=== PATIENT | female | born 1955 | race Two or more races ===

== ENCOUNTER 2017-09-25 22:57 | Emergency (ER) | payer SELFPAY ==
--- NOTE | 2017-09-25 23:48 | ED ---
Throat Pain/Nasal Congestion - HPI Summary HPI Summary: Patient from [place] 3 days ago complains of sub fever, chills, ALLEN, sore throat, body aches, dry cough x 2 days, with nausea today. Denies ear pain, neck pain, CP, SOB, V/D, abdominal pain, change in urine or BM. Medical history is HTN, palpitations. Took Tylenol prior to arrival. 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 Onset/Duration: Gradual Onset Severity: Mild Associated Signs And Symptoms: Positive: Negative Cough: Nonproductive - Epiglottits Risk Factors Epiglottis Risk Factors: Negative - Allergies/Home Medications Allergies/Adverse Reactions: Allergies Allergy/AdvReac Type Severity Reaction Status Date / Time diclofenac [From Voltaren] Allergy Hives Verified 09/25/17 23:12 PMH/Surg Hx/FS Hx/Imm Hx Endocrine/Hematology History: Denies: Hx Anticoagulant Therapy Cardiovascular History: Denies: Hx Cardiac Arrest History: Denies: Hx Dialysis Neurological History: Denies: Hx CVA Infectious Disease History: No Infectious Disease History: Reports: Traveled Outside the [place] in Last 30 Days - Social History Alcohol Use: None Hx Substance Use: No Hx Tobacco Use: No Review of Systems Positive: Fever, Chills Eyes: Negative Positive: Sore Throat Cardiovascular: Negative Positive: Cough Positive: Nausea Genitourinary: Negative Positive: Myalgia Skin: Negative Positive: Headache Psychological: Normal All Other Systems Reviewed And Are Negative: Yes Physical Exam Triage Information Reviewed: Yes Vital Signs On Initial Exam: Initial Vitals Temp Pulse Resp BP Pulse Ox 97.8 F 76 16 116/60 98 09/25/17 23:09 09/25/17 23:09 09/25/17 23:09 09/25/17 23:09 09/25/17 23:09 Vital Signs Reviewed: Yes Appearance: Positive: Well-Appearing Skin: Positive: Warm Head/Face: Positive: Normal Head/Face Inspection Eyes: Positive: Normal ENT: Positive: Pharyngeal erythema, TMs normal, Uvula midline. Negative: Nasal congestion, Tonsillar swelling, Tonsillar exudate, Trismus, Muffled voice, Hoarse voice, Sinus tenderness Neck: Positive: Supple Respiratory/Lung Sounds: Positive: Clear to Auscultation Cardiovascular: Positive: Normal Abdomen Description: Positive: Nontender Musculoskeletal: Positive: Normal Neurological: Positive: Normal Psychiatric: Positive: Normal AVPU Assessment: Alert - [place] Coma Scale Best Eye Response: 4 - Spontaneous Best Motor Response: 6 - Obeys Commands Best Verbal Response: 5 - Oriented Coma Scale Total: 15 Diagnostics - Vital Signs Vital Signs Temp Pulse Resp BP Pulse Ox 09/25/17 23:09 97.8 F 76 16 116/60 98 - Laboratory Result Diagrams: 09/25/17 23:46 09/25/17 23:46 Lab Statement: Any lab studies that have been ordered have been reviewed, and results considered in the medical decision making process. - Radiology cxr Xray Interpretation: No Acute Changes Radiology Interpretation Completed By: ED Physician EENT Course/Dx - Course Course Of Treatment: Patient from [place] 3 days ago complains of sub fever, chills, ALLEN, sore throat, body aches, dry cough x 2 days, with nausea today. Denies ear pain, neck pain, CP, SOB, V/D, abdominal pain, change in urine or BM. Medical history is HTN, palpitations. Took Tylenol prior to arrival. Vital signs within normal limits. Labs unremarkable except for hypokalemia. Positive for flu a. Rx for Tamiflu, ibuprofen and Tylenol for body aches, fever control. - Diagnoses Provider Diagnoses: Flu, Hypokalemia Discharge - Sign-Out/Discharge Documenting (check all that apply): Discharge/Admit/Transfer - Discharge Plan Condition: Stable Disposition: HOME Prescriptions: Oseltamivir CAP* [Tamiflu CAP*] 75 mg PO BID 5 Days #9 cap Patient Education Materials: Hypokalemia (ED), Influenza (ED) Referrals: No Primary Care Phys,NOPCP [Primary Care Provider] - Additional Instructions: Follow-up with primary care. Tylenol and ibuprofen for fever control. Return to the ED for any new or worsening symptoms - Billing Disposition and Condition Condition: STABLE Disposition: Home
[2017-09-25 23:56] LABS: ABS Basophils 0 10^3/ul (0-0.2); ABS Eosinophils 0.1 10^3/ul (0-0.6); ABS Lymphocytes 1.3 10^3/ul (1.0-4.8); ABS Monocytes 0.8 10^3/ul (0-0.8); ABS Neutrophils 3.2 10^3/ul (1.5-7.7); ABS Nucleated RBC 0 10^3/ul; Eosinophil % 1.4 % (0-6); Hematocrit 36 % (35-47); Hemoglobin 12.5 g/dl (12.0-16.0); Lymphocyte % 24.5 % (25-47); Mean Corpuscular HGB Conc 34 g/dl (31-36); Mean Corpuscular Hemoglobin 31 pg (27-31); Mean Corpuscular Volume 89 fL (80-97); Mean Platelet Volume 7.6 um3 (7.4-10.4); Nucleated Red Blood Cells % 0; Platelet Count 274 10^3/ul (150-450); Red Blood Count 4.07 10^6/ul (4.00-5.40); Red Cell Distribution Width 14 % (10.5-15); White Blood Count 5.5 10^3/ul (3.5-10.8)
[2017-09-26 00:12] LABS: EGFR Non-African American 81.3 (>60)
[2017-09-26] MEDS ORDERED: Ondansetron ODT TAB* 4 MG PO ONE (00:27)
[2017-09-26] MEDS ORDERED: Lidocaine 2% VISCOUS* 15 ML UDC PO ONE (00:27)
[2017-09-26] MEDS ORDERED: Potassium Chlor TAB* 20 MEQ TAB.ER PO ONE (00:28)
[2017-09-26] MEDS ORDERED: Oseltamivir CAP* 75 MG CAP PO ONE (01:16)
[2017-09-26 02:13] VITALS: BP 131/75
--- NOTE | 2017-09-26 09:08 | RAD ---
Indication: Cough, fever. 2 views of the chest including dual energy PA views demonstrate no mediastinal shift. Heart is of normal size and configuration. Lung cano demonstrate no pleural fluid, pneumonia or pneumothorax. IMPRESSION: No active cardiopulmonary disease is noted.
== END 2017-09-26 01:45 | disposition home or self-care (01) ==
LOC: ED 22:57
DX: J11.1 Influenza due to unidentified influenza virus with other respiratory manifestations (principal); E87.6 Hypokalemia; R50.9 Fever, unspecified; J02.9 Acute pharyngitis, unspecified; R05 Cough; R11.0 Nausea; R51 Headache; M79.1 Myalgia
CPT/HCPCS: 36415; 71046; 80053; 83605; 85025; 86140; 86308; 87502; 87651; 99282; A9270-GY